=== PATIENT | female | born 1980 | race Caucasian/White ===

== ENCOUNTER 2016-07-01 20:49 | Emergency (ER) | payer OTHER ==
[~2016-07-01] VITALS: Ht 172.7 cm; Wt 74.8 kg
[2016-07-01 21:12] VITALS: BP 133/81
[2016-07-01] MEDS ORDERED: Albuterol ud Inhalation HHN ONE (22:00)
[2016-07-01] MEDS ORDERED: PredniSONE 20mg tab ORAL ONE (22:00)
--- NOTE | 2016-07-01 22:30 | Emergency Room Report ---
History of Present Illness General Chief Complaint: Upper Respiratory Illness Source: Patient Present Illness HPI Is a 35-year-old female with no past medical history. She presents with chief complaint of cough and soreness of breath. Also with fever and sore throat. Her 3 children are also sick. 2 of them are positive for strep throat 2 days ago. She had to rapid strep there are negative. Culture pending. Because of some dyspnea especially came in. Her father loss also sick. Allergies: Coded Allergies: No Known Allergies (Unverified , 07/01/16) Patient History Past Medical History: see triage record, old chart reviewed Past Surgical History: none Pertinent Family History: none Social History: Denies: smoking Last Menstrual Period: 01/21/16 IUD Now: No Immunizations: other Reviewed Nursing Documentation: PMH: Agreed, PSxH: Agreed Nursing Documentation-PMH Past Medical History: No Stated History Review of Systems Constitutional: Reports: fever Eye: Denies: blurred vision, eye pain ENT: Reports: throat pain Respiratory: Reports: cough, shortness of breath Cardiovascular: Denies: chest pain, palpitations Gastrointestinal: Denies: abdominal pain, diarrhea, nausea, vomiting Musculoskeletal: Denies: back pain, joint pain Skin: Denies: rash Neurological: Denies: headache, numbness Endocrine: Denies: increased thirst, increased urine Hematologic/Lymphatic: Denies: easy bruising All Other Systems: negative except mentioned in HPI Physical Exam Vital Signs Date Time Temp Pulse Resp B/P Pulse Ox O2 Delivery O2 Flow Rate FiO2 07/01/16 21:02 101.8 110 22 133/81 98 Room Air vitals with fever Sp02 EP Interpretation: reviewed, normal General Appearance: well appearing, no apparent distress, alert Head: normocephalic, atraumatic Eyes: bilateral eye EOMI, bilateral eye PERRL ENT: hearing grossly normal, pharyngeal erythema Neck: full range of motion, supple, no meningismus Respiratory: chest non-tender, lungs clear, normal breath sounds Cardiovascular #1: regular rate, rhythm, no murmur Gastrointestinal: normal bowel sounds, non tender, no mass, no organomegaly, no bruit, non-distended Musculoskeletal: back normal, gait/station normal, normal range of motion Psychiatric: mood/affect normal Skin: warm/dry Medical Decision Making Diagnostic Impression: Primary Impression: Upper respiratory infection Qualified Codes: J06.9 - Acute upper respiratory infection, unspecified; B97.89 - Other viral agents as the cause of diseases classified elsewhere ER Course Patient presents with a viral respiratory infection. Most likely URI versus influenza-like illness. No evidence of sepsis, pneumonia, Dr. infection. Clinically no evidence of strep. The fact that everyone in the family is sick points toward a viral etiology. Last Vital Signs Date Time Temp Pulse Resp B/P Pulse Ox O2 Delivery O2 Flow Rate FiO2 07/01/16 22:02 102 18 100 Room Air 07/01/16 21:12 101.8 133/81 Status: improved Disposition: HOME, SELF-CARE Condition: Stable Scripts Prednisone* (PREDNISONE*) 20 Mg Tablet 60 MG ORAL DAILY, #12 TAB Prov: YOLANDA WELCH M.D. 07/01/16 Ibuprofen* (MOTRIN*) 600 Mg Tablet 600 MG ORAL THREE TIMES A DAY, #30 TAB 0 Refills Prov: YOLANDA WELCH M.D. 07/01/16 Albuterol Sulfate* (ALBUTEROL SULFATE MDI*) 8.5 Gm Hfa.aer.ad 2 PUFF INH Q4H Y for cough/wheezing, #1 EA 0 Refills Prov: YOLANDA WELCH M.D. 07/01/16 Referrals: NOT CHOSEN IPA/,REFERRING (PCP) Patient Instructions: Upper Respiratory Infection, Adult Additional Instructions: Followup with your DrEric in 2-3 days. Increase fluid. Return if symptom worsen. YOLANDA WELCH M.D. Jul 01, 2016 22:30
[2016-07-01] MEDS ORDERED: ALBUTEROL SULF8.5 GM INH (22:35)
[2016-07-01] MEDS ORDERED: IBUPROFEN600 MG ORAL (22:35)
[2016-07-01] MEDS ORDERED: PREDNISONE20 MG ORAL (22:35)
[2016-07-01 22:45] VITALS: BP 130/66
== END 2016-07-01 22:49 | disposition home or self-care (01) ==
LOC: EMR 21:50
DX: J06.9 Acute upper respiratory infection, unspecified (principal); B97.89 Other viral agents as the cause of diseases classified elsewhere
CPT/HCPCS: 94640; 94664; 99284